=== PATIENT | male | born 1980 | race African-American/Black ===

== ENCOUNTER 2017-01-31 23:18 | Emergency (ER) | payer OTHER ==
[~2017-01-31] VITALS: Ht 165.1 cm; Wt 72.2 kg
[2017-02-01 01:18] VITALS: BP 112/79
== END 2017-02-01 01:21 ==
LOC: EME → EDBD 23:18 → EME 23:18
PROC: 3E0234Z Introduction of Serum, Toxoid and Vaccine into Muscle, Percutaneous Approach (ICD-10-PCS; principal; 2017-02-01)
DX: S02.2XXA Fracture of nasal bones, initial encounter for closed fracture (principal); S00.83XA Contusion of other part of head, initial encounter; Z23 Encounter for immunization; Y04.0XXA Assault by unarmed brawl or fight, initial encounter; Y92.149 Unspecified place in prison as the place of occurrence of the external cause; Z87.891 Personal history of nicotine dependence
CPT/HCPCS: 70450; 70486; 99281; 99283